=== PATIENT | female | born 1990 ===

== ENCOUNTER 2020-02-10 12:27 | Inpatient (IN) ==
[2020-02-10] MEDS ORDERED: KETOROLAC 15 MG/1 ML VIAL IV PRN (13:51)
[2020-02-10] MEDS ORDERED: BISACODYL 5 MG TABLET PO PRN (13:51)
[2020-02-10] MEDS ORDERED: ACETAMINOPHEN 325 MG TABLET PO PRN (13:51)
[2020-02-10] MEDS ORDERED: ALBUTEROL/IPRATROPIUM 3 ML NEB RESP TX PRN (13:51)
[2020-02-10] MEDS ORDERED: ONDANSETRON 4 MG/2 ML VIAL IV PRN (13:51)
[2020-02-10] MEDS ORDERED: HYDROmorphone 2 MG/1 ML VIAL IV PRN ×2 (13:51)
[2020-02-10] MEDS ORDERED: GLUCAGON 1 MG VIAL IM PRN (14:24)
[2020-02-10] MEDS ORDERED: DEXTROSE 10% 250 ML BAG IV PRN (14:24)
[2020-02-10] MEDS: LACTATED RINGERS 1,000 ML IV SCH (16:04)
[2020-02-10] MEDS: INSULIN LISPRO 100 UNIT/ML SUBCUT SCH (17:21)
[2020-02-11] MEDS: LACTATED RINGERS 1,000 ML IV SCH ×3 (00:20→22:19)
[2020-02-11] MEDS ORDERED: INDOCYANINE GREEN 25 MG VIAL IV ONE (06:00)
[2020-02-11] MEDS ORDERED: cefOXitin 2,000 MG in SYRINGE 1 EACH IV ONE (06:00)
[2020-02-11 06:03] LABS: Basophils % 0.4 % (0.0-0.8); Eosinophils # 0.1 10*3/uL (0.0-0.87); Eosinophils % 1.1 % (0.00-10.9); Hematocrit 32.5 VOL% (35.7-47.0); Hemoglobin 10.2 GM/DL (12.0-16.0); Immature Granulocytes % 0.4 %; Immature Granulocytes Absolute 0.03 #; Lymphocytes # 3.9 10*3/uL (1.4-4.0); Lymphocytes % 46.9 % (21.3-54.2); Mean Corpuscular HGB Conc 31.4 GM/DL (32-36); Mean Corpuscular Volume 82.7 FL (87-102); Mean Platelet Volume 10.2 FL (9.6-12.0); Monocytes % 9.1 % (1.7-12.7); Neutrophils % 42.1 % (38.7-73.9); Platelet Count 260 T/CUMM (130-400); Red Blood Count 3.93 MC/CUMM (3.8-5.5); Red Cell Distribution Width 13.3 % (9.3-17.3); White Blood Count 8.3 T/CUMM (4-12)
[2020-02-11] MEDS ORDERED: TISSUE ADHESIVE 1 EACH APPLICATOR TOP ONE (06:14)
[2020-02-11] MEDS ORDERED: LIDOCAINE 1%/EPI INJ 20 ML VIAL ONE (06:15)
[2020-02-11] MEDS ORDERED: BUPIVACAINE MPF 0.25% 30 ML VIAL ONE (06:15)
[2020-02-11 06:24] LABS: Albumin 2.6 G/DL (3.4-5.0); Bilirubin,Total 0.7 MG/DL (0.2-1.0); Calcium 8.5 MG/DL (8.5-10.1); Total Protein 5.9 G/DL (6.4-8.3)
[2020-02-11] MEDS: INSULIN LISPRO 100 UNIT/ML SUBCUT SCH ×3 (08:00→16:46)
[2020-02-11] MEDS ORDERED: MIDAZOLAM 2 MG/2 ML VIAL ONE (08:31)
[2020-02-11] MEDS ORDERED: SEVOFLURANE 1 UNIT/15 MINUTE INH ONE (08:31)
[2020-02-11] MEDS ORDERED: propofoL 200 MG/20 ML VIAL IV ONE (08:31)
[2020-02-11] MEDS ORDERED: ONDANSETRON 4 MG/2 ML VIAL ONE (08:31)
[2020-02-11] MEDS ORDERED: LIDOCAINE 2% 5 ML VIAL ONE (08:31)
[2020-02-11] MEDS ORDERED: HYDROmorphone 2 MG/1 ML VIAL ONE (08:31)
[2020-02-11] MEDS ORDERED: fentaNYL 100 MCG/2 ML VIAL ONE (08:31)
[2020-02-11] MEDS ORDERED: LACTATED RINGERS 1,000 ML IV ONE (08:32)
[2020-02-11] MEDS ORDERED: PHENYLEPHRINE 1 MG/10 ML SYRINGE IV ONE (08:32)
[2020-02-11] MEDS ORDERED: KETOROLAC 30 MG/1 ML VIAL ONE (08:32)
[2020-02-11] MEDS ORDERED: NEOSTIGMINE 10 MG/10 ML VIAL ONE (08:32)
[2020-02-11] MEDS ORDERED: ROCURONIUM 100 MG/10 ML VIAL IV ONE (08:32)
[2020-02-11] MEDS ORDERED: GLYCOPYRROLATE 0.4 MG/2 ML VIAL ONE (08:32)
[2020-02-11] MEDS: PANTOPRAZOLE 40 MG TABLET PO SCH (09:46)
[2020-02-11] MEDS ORDERED: MAGNESIUM SULF RIDER 2 GM in PREMIX 1 EACH IV ONE (10:37)
[2020-02-11] MEDS ORDERED: NEOSTIGMINE 10 MG/10 ML VIAL IV ONE (10:39)
[2020-02-11] MEDS: lisinopriL 10 MG TABLET PO SCH (11:04)
[2020-02-12] MEDS: INSULIN LISPRO 100 UNIT/ML SUBCUT SCH (08:05)
[2020-02-12 08:54] VITALS: BP 110/69
[2020-02-12] MEDS: PANTOPRAZOLE 40 MG TABLET PO SCH (10:40)
[2020-02-12] MEDS: lisinopriL 10 MG TABLET PO SCH (10:40)
== END 2020-02-12 10:40 | disposition home or self-care (01) | DRG 419 ==
LOC: EDUNIT# → EDBD → N.ED 12:27 → N.EDINP 13:56 → N.3E 15:07
PROVIDERS: ADMIT Surgery; ATTEND Surgery

== ENCOUNTER 2020-08-07 10:30 | Inpatient (IN) ==
[2020-08-07] MEDS ORDERED: SODIUM CHLORIDE 0.9% 1,000 ML IV STA (10:48)
[2020-08-07] MEDS ORDERED: PROMETHAZINE 25 MG/1 ML VIAL IM STA (10:49)
[2020-08-07 11:30] LABS: Basophils % 0.1 % (0.0-0.8); Hematocrit 35.3 VOL% (35.7-47.0); Hemoglobin 11.5 GM/DL (12.0-16.0); Immature Granulocytes % 0.4 %; Immature Granulocytes Absolute 0.07 #; Lymphocytes # 1.4 10*3/uL (1.4-4.0); Lymphocytes % 8.2 % (21.3-54.2); Mean Corpuscular HGB Conc 32.6 GM/DL (32-36); Mean Corpuscular Volume 81.9 FL (87-102); Mean Platelet Volume 9.3 FL (9.6-12.0); Monocytes % 3.3 % (1.7-12.7); Platelet Count 427 T/CUMM (130-400); Red Blood Count 4.31 MC/CUMM (3.8-5.5); Red Cell Distribution Width 13.1 % (9.3-17.3); White Blood Count 17.2 T/CUMM (4-12)
[2020-08-07 11:53] LABS: Albumin 3.6 G/DL (3.4-5.0); Calcium 8.8 MG/DL (8.5-10.1); Osmolality,Calculated 282.5 MOS/KG (273-304); Total Protein 8.5 G/DL (6.4-8.3)
[2020-08-07 12:31] LABS: Bacteria,Urine Occasional /HPF (Few); Bilirubin,Urine Negative (Negative); Blood, Urine Negative (Negative); Glucose,Urine (UA) Negative (Negative); Ketones,Urine 80 mg/dL (Negative); Mucus,Urine Many /LPF (Occasional); Nitrite,Urine Negative (Negative); Protein,Urine 30 MG/DL; RBC,Urine 3 /HPF (0-4); Squamous Epithelial Cell,Urine Few /HPF (0-10); Urine Appearance Slightly Hazy (Clear); Urine Color Yellow (Yellow); Urine Specific Gravity 1.021 (1.001-1.035); Urine Urobilinogen < 2.0 EU/DL (0.2-1.0); WBC,Urine 3 /HPF (0-6)
[2020-08-07] MEDS ORDERED: GLUCAGON 1 MG VIAL IM PRN (14:02)
[2020-08-07] MEDS ORDERED: NICOTINE 21 MG/24 HR PATCH TRANSDERM PRN (14:02)
[2020-08-07] MEDS ORDERED: DEXTROSE 50% 25 GM/50 ML VIAL IV PRN (14:02)
[2020-08-07] MEDS ORDERED: MAGNESIUM SULF RIDER 2 GM in PREMIX 1 EACH IV PRN (14:05)
[2020-08-07] MEDS ORDERED: MAGNESIUM SULF RIDER 4 GM in PREMIX 1 EACH IV PRN (14:05)
[2020-08-07] MEDS: INSULIN LISPRO 100 UNIT/ML SUBCUT SCH ×2 (16:23→20:13)
[2020-08-07] MEDS: PROMETHAZINE 25 MG/1 ML VIAL IM PRN ×2 (16:23→22:46)
[2020-08-07] MEDS: LOSARTAN 25 MG TABLET PO SCH (16:23)
[2020-08-07] MEDS: SODIUM CHLORIDE 0.9% 1,000 ML IV SCH ×2 (16:46→23:59)
[2020-08-07] MEDS: ONDANSETRON 4 MG/2 ML VIAL IV PRN (20:11)
[2020-08-07] MEDS: ENOXAPARIN 40 MG/0.4 ML SYRINGE SUBCUT SCH (20:13)
[2020-08-07] MEDS: hydrALAZINE 20 MG/1 ML VIAL IV PRN (23:59)
[2020-08-08] MEDS: ONDANSETRON 4 MG/2 ML VIAL IV PRN ×2 (02:24→15:35)
[2020-08-08 05:58] LABS: Basophils % 0.2 % (0.0-0.8); Eosinophils % 0.1 % (0.00-10.9); Hematocrit 33.4 VOL% (35.7-47.0); Hemoglobin 10.9 GM/DL (12.0-16.0); Immature Granulocytes % 0.6 %; Lymphocytes # 2.7 10*3/uL (1.4-4.0); Lymphocytes % 17.1 % (21.3-54.2); Mean Corpuscular HGB Conc 32.6 GM/DL (32-36); Mean Corpuscular Volume 80.5 FL (87-102); Mean Platelet Volume 9.3 FL (9.6-12.0); Monocytes % 6.2 % (1.7-12.7); Neutrophils % 75.8 % (38.7-73.9); Platelet Count 433 T/CUMM (130-400); Red Blood Count 4.15 MC/CUMM (3.8-5.5); Red Cell Distribution Width 12.9 % (9.3-17.3)
[2020-08-08 06:05] LABS: Albumin 3.1 G/DL (3.4-5.0); Bilirubin,Total 0.9 MG/DL (0.2-1.0); Calcium 7.9 MG/DL (8.5-10.1); Total Protein 7.5 G/DL (6.4-8.3)
[2020-08-08] MEDS: SODIUM CHLORIDE 0.9% 1,000 ML IV SCH ×3 (06:57→20:15)
[2020-08-08] MEDS: INSULIN LISPRO 100 UNIT/ML SUBCUT SCH ×4 (07:33→20:48)
[2020-08-08] MEDS: METOCLOPRAMIDE 5 MG TABLET PO SCH (16:25)
[2020-08-08] MEDS: LOSARTAN 25 MG TABLET PO SCH (16:25)
[2020-08-08] MEDS: ENOXAPARIN 40 MG/0.4 ML SYRINGE SUBCUT SCH (20:49)
[2020-08-09] MEDS: SODIUM CHLORIDE 0.9% 1,000 ML IV SCH ×2 (03:01→14:23)
[2020-08-09] MEDS: hydrALAZINE 20 MG/1 ML VIAL IV PRN (04:09)
[2020-08-09] MEDS: ACETAMINOPHEN 325 MG TABLET PO PRN ×2 (04:09→20:38)
[2020-08-09 05:05] LABS: Basophils % 0.2 % (0.0-0.8); Eosinophils % 0.1 % (0.00-10.9); Hematocrit 32.4 VOL% (35.7-47.0); Hemoglobin 10.8 GM/DL (12.0-16.0); Immature Granulocytes % 0.6 %; Immature Granulocytes Absolute 0.07 #; Lymphocytes # 2.7 10*3/uL (1.4-4.0); Lymphocytes % 21.2 % (21.3-54.2); Mean Corpuscular HGB Conc 33.3 GM/DL (32-36); Mean Corpuscular Volume 78.8 FL (87-102); Mean Platelet Volume 9.2 FL (9.6-12.0); Monocytes % 7.2 % (1.7-12.7); Neutrophils % 70.7 % (38.7-73.9); Platelet Count 401 T/CUMM (130-400); Red Blood Count 4.11 MC/CUMM (3.8-5.5); Red Cell Distribution Width 12.7 % (9.3-17.3); White Blood Count 12.6 T/CUMM (4-12)
[2020-08-09 05:27] LABS: Osmolality,Calculated 265.4 MOS/KG (273-304)
[2020-08-09] MEDS: POTASSIUM CHLORIDE RIDER 10 MEQ in PREMIX 1 EACH IV PRN ×6 (05:45→22:36)
[2020-08-09] MEDS: ONDANSETRON 4 MG/2 ML VIAL IV PRN ×2 (05:45→20:38)
[2020-08-09] MEDS: INSULIN LISPRO 100 UNIT/ML SUBCUT SCH ×4 (08:14→20:13)
[2020-08-09] MEDS: PROMETHAZINE 25 MG/1 ML VIAL IM PRN (08:30)
[2020-08-09] MEDS: LOSARTAN 50 MG TABLET PO SCH (10:13)
[2020-08-09 10:22] LABS: Bilirubin,Direct 0.17 MG/DL (0.0-0.20); Bilirubin,Indirect 0.6 MG/DL (0.0-1.0); Bilirubin,Total 0.8 MG/DL (0.2-1.0); Total Protein 7.1 G/DL (6.4-8.3)
[2020-08-09] MEDS: METOCLOPRAMIDE 5 MG TABLET PO SCH ×4 (11:58→20:37)
[2020-08-09] MEDS: SODIUM CHLOR 0.9% KCL 20 MEQ 20 MEQ/1,000 ML BAG IV SCH (12:01)
[2020-08-09] MEDS: ENOXAPARIN 40 MG/0.4 ML SYRINGE SUBCUT SCH (20:37)
[2020-08-10 03:25] LABS: Barbiturates Screen,Urine Negative (Negative); Benzodiazepines Screen,Urine Negative (Negative); Cannabinoid Screen,Urine Positive (Negative); Opiate Screen,Urine Negative (Negative); Phencyclidine Screen,Urine Negative (Negative)
[2020-08-10 05:54] LABS: Basophils % 0.2 % (0.0-0.8); Eosinophils % 0.2 % (0.00-10.9); Hematocrit 32.1 VOL% (35.7-47.0); Hemoglobin 10.8 GM/DL (12.0-16.0); Immature Granulocytes % 0.3 %; Immature Granulocytes Absolute 0.03 #; Lymphocytes # 2.1 10*3/uL (1.4-4.0); Lymphocytes % 22.5 % (21.3-54.2); Mean Corpuscular HGB Conc 33.6 GM/DL (32-36); Mean Corpuscular Volume 79.9 FL (87-102); Monocytes % 8.3 % (1.7-12.7); Neutrophils % 68.5 % (38.7-73.9); Platelet Count 372 T/CUMM (130-400); Red Blood Count 4.02 MC/CUMM (3.8-5.5); Red Cell Distribution Width 12.8 % (9.3-17.3); White Blood Count 9.2 T/CUMM (4-12)
[2020-08-10 06:24] LABS: Calcium 8.5 MG/DL (8.5-10.1); Osmolality,Calculated 265.4 MOS/KG (273-304)
[2020-08-10 06:25] LABS: Albumin 3.1 G/DL (3.4-5.0); Bilirubin,Total 0.9 MG/DL (0.2-1.0); Calcium 8.5 MG/DL (8.5-10.1); Osmolality,Calculated 268.2 MOS/KG (273-304)
[2020-08-10 06:27] LABS: % Iron Saturation 14.6 % (18-50); Ferritin 13.1 ng/ml (8-252)
[2020-08-10] MEDS: METOCLOPRAMIDE 5 MG TABLET PO SCH ×4 (08:38→21:24)
[2020-08-10] MEDS: LOSARTAN 50 MG TABLET PO SCH (08:38)
[2020-08-10] MEDS: POTASSIUM CHLORIDE RIDER 10 MEQ in PREMIX 1 EACH IV PRN ×2 (08:41→12:13)
[2020-08-10] MEDS: INSULIN LISPRO 100 UNIT/ML SUBCUT SCH ×4 (10:31→20:56)
[2020-08-10] MEDS: SODIUM CHLOR 0.9% KCL 20 MEQ 20 MEQ/1,000 ML BAG IV SCH ×2 (12:13)
[2020-08-10] MEDS: ENOXAPARIN 40 MG/0.4 ML SYRINGE SUBCUT SCH (21:24)
[2020-08-11] MEDS: SODIUM CHLOR 0.9% KCL 20 MEQ 20 MEQ/1,000 ML BAG IV SCH ×2 (04:11→16:11)
[2020-08-11] MEDS ORDERED: LIDOCAINE 100 MG/5 ML SYRINGE ONE (09:00)
[2020-08-11] MEDS ORDERED: propofoL 200 MG/20 ML VIAL IV ONE (09:00)
[2020-08-11] MEDS: LACTATED RINGERS 1,000 ML IV SCH ×2 (10:25→11:20)
[2020-08-11] MEDS: INSULIN LISPRO 100 UNIT/ML SUBCUT SCH ×2 (11:19→13:08)
[2020-08-11] MEDS: LOSARTAN 50 MG TABLET PO SCH ×2 (11:20→13:12)
[2020-08-11] MEDS: METOCLOPRAMIDE 5 MG TABLET PO SCH ×2 (11:20→13:12)
[2020-08-11] MEDS: ACETAMINOPHEN 325 MG TABLET PO PRN (13:11)
[2020-08-11] MEDS: hydrALAZINE 20 MG/1 ML VIAL IV PRN (13:45)
[2020-08-11 14:38] VITALS: BP 146/87
== END 2020-08-11 16:02 | disposition home or self-care (01) | DRG 392 ==
LOC: EDUNIT# → EDBD → N.EDINP 10:30 → N.ED 10:30 → SUATTDRO 14:02 → N.5E 15:29
PROVIDERS: ADMIT Family Medicine; ATTEND Internal Medicine